=== PATIENT | female | born 1960 | race Caucasian/White ===

== ENCOUNTER → 2017-02-15 | Outpatient (CLI) | payer OTHER ==
[~2017-02-15] MED LIST: CHOL200024 PO; CINN500C2 PO; LEVO100T5 PO; LIOT5TAB3 PO; LOSA50TA6 PO; MULT-717 PO
== END | disposition home or self-care (01) ==
LOC: ROC 10:02
PROVIDERS: ATTEND Radiology Radiation Oncology
DX: Z08 Encounter for follow-up examination after completed treatment for malignant neoplasm (principal); C50.512 Malignant neoplasm of lower-outer quadrant of left female breast; Z92.3 Personal history of irradiation
CPT/HCPCS: 99212; G0463

== ENCOUNTER → 2017-02-15 | Outpatient (CLI) | payer OTHER | LOC: ROC 09:25 | PROVIDERS: ATTEND Radiology Radiation Oncology | DX: Z02.9 Encounter for administrative examinations, unspecified (principal) ==

== ENCOUNTER → 2018-02-11 | Outpatient (CLI) | payer OTHER | LOC: ROC 07:34 | PROVIDERS: ATTEND Radiology Radiation Oncology | DX: Z08 Encounter for follow-up examination after completed treatment for malignant neoplasm (principal); C50.512 Malignant neoplasm of lower-outer quadrant of left female breast | CPT/HCPCS: 99213; G0463 ==

== ENCOUNTER → 2019-02-20 | Outpatient (CLI) | payer OTHER ==
[~2019-02-20] MED LIST changes: +LOSA50TA14 PO; -LOSA50TA6 PO
== END | disposition home or self-care (01) ==
LOC: ROC 07:10
PROVIDERS: ATTEND Radiology Radiation Oncology
DX: Z09 Encounter for follow-up examination after completed treatment for conditions other than malignant neoplasm (principal)
CPT/HCPCS: 99212; G0463